=== PATIENT | male | born 1975 | race Caucasian/White ===

== ENCOUNTER 2023-09-13 21:19 | Inpatient (IN) | payer BC, OTHER ==
[~2023-09-13 21:19] MED LIST: Iopamidol-370 76% 500 ML MDV (1 ML CHARGE) ONE
[2023-09-13] MEDS ORDERED: Morphine 4 MG/ML VIAL ONE ×2 (21:36→23:37)
[2023-09-13 21:52] LABS: #Basophils 0.07 10x3/uL (0.0-0.2); %Basophils 0.9 % (0.0-1.0); %Eosinophils 1.8 % (0.0-10.0); %Lymphocytes 30.4 % (21.0-51.0); %Monocytes 6.2 % (0.0-10.0); %Neutrophils 58.9 % (42.0-75.0); Mean Corpuscular HGB CONC 35.6 g/dL (32.0-36.0); Mean Corpuscular Hemoglobin 30.1 pg (27.0-31.0); Mean Corpuscular Volume 84.7 fL (78.0-98.0); Mean Platelet Volume 8.8 fL (7.4-10.4); Platelet Count 307 10x3/uL (130-400); RBC Distribution Width 12.5 % (11.5-14.5); Red Blood Cell (RBC) Count 5.31 mill/uL (4.70-6.10)
[2023-09-13 22:03] LABS: Alcohol Less than 10.0 mg/dL (Less than 10)
[2023-09-13 22:06] LABS: ALT (SGPT) 25 U/L (8-55); AST (SGOT) 22 U/L (5-34); Albumin 3.9 g/dL (3.5-5.0); Alkaline Phosphatase 49 U/L (40-110); Anion Gap 16 mmol/L (10-20); BUN (Urea Nitrogen) 21 mg/dL (8.9-20.6); Bilirubin, Total 0.3 mg/dL (0.2-1.2); Calc. Creatinine Clearance 0 mL/min (70-130); Calcium 8.4 mg/dL (7.8-10.44); Carbon Dioxide 21 mmol/L (22-29); Chloride 104 mmol/L (98-107); Estimated GFR 75; Glucose 119 mg/dL (70-105); Potassium 3.6 mmol/L (3.5-5.1); Protein, Total 6.9 g/dL (6.0-8.3); Sodium 137 mmol/L (136-145)
[2023-09-13 22:10] LABS: PTT 25.2 sec (22.9-36.1)
[2023-09-13] MEDS ORDERED: Ipratropium/Albuterol 3 ML NEB NEB PRN (23:44)
[2023-09-13] MEDS ORDERED: Ondansetron PF 4 MG/2 ML Vial IVP PRN (23:44)
[2023-09-13] MEDS ORDERED: traMADol HCl 50 MG TAB PO PRN (23:46)
[2023-09-13] MEDS ORDERED: Acetaminophen 325 MG TAB PO SCH (23:59)
[2023-09-14 01:25] VITALS: BMI 31.4
[2023-09-14] MEDS: Sodium Chloride 0.9% 1,000 ML IV SCH (01:37)
[2023-09-14] MEDS: Morphine 2 MG/ML VIAL SLOW IVP PRN (01:38)
[2023-09-14] MEDS: traMADol HCl 50 MG TAB PO SCH (01:47)
[2023-09-14] MEDS: Ketorolac Tromethamine 30 MG (1 mL) VIAL IVP SCH ×2 (01:47→05:22)
[2023-09-14] MEDS: Acetaminophen 500 MG TAB PO SCH (01:47)
[2023-09-14] MEDS: Cyclobenzaprine 10 MG TAB PO PRN (03:40)
[2023-09-14 05:54] LABS: #Basophils 0.06 10x3/uL (0.0-0.2); %Basophils 0.6 % (0.0-1.0); %Eosinophils 1.2 % (0.0-10.0); %Lymphocytes 24.3 % (21.0-51.0); %Monocytes 8.8 % (0.0-10.0); %Neutrophils 64.4 % (42.0-75.0); Hematocrit 42.1 % (42.0-52.0); Hemoglobin 14.4 g/dL (14.0-18.0); Mean Corpuscular HGB CONC 34.2 g/dL (32.0-36.0); Mean Corpuscular Hemoglobin 29.6 pg (27.0-31.0); Mean Corpuscular Volume 86.4 fL (78.0-98.0); Mean Platelet Volume 9.1 fL (7.4-10.4); Platelet Count 249 10x3/uL (130-400); RBC Distribution Width 12.6 % (11.5-14.5); Red Blood Cell (RBC) Count 4.87 mill/uL (4.70-6.10)
[2023-09-14 06:22] LABS: Anion Gap 10 mmol/L (10-20); BUN (Urea Nitrogen) 18 mg/dL (8.9-20.6); Calc. Creatinine Clearance 117 mL/min (70-130); Calcium 8.1 mg/dL (7.8-10.44); Carbon Dioxide 27 mmol/L (22-29); Chloride 102 mmol/L (98-107); Estimated GFR 88; Glucose 95 mg/dL (70-105); Potassium 3.2 mmol/L (3.5-5.1); Sodium 136 mmol/L (136-145)
[2023-09-14] MEDS: Polyethylene Glycol 3350 17 GM Packet PO SCH (09:37)
[2023-09-14] MEDS: Senokot S 8.6-50 MG TAB PO SCH (09:38)
[2023-09-14] MEDS: Famotidine/PF 20 mg/2ml Vial SLOW IVP SCH (09:38)
[2023-09-14] MEDS: Tamsulosin HCl 0.4 MG CAP PO SCH (18:13)
[2023-09-15] MEDS: Tamsulosin HCl 0.4 MG CAP PO SCH (09:30)
[2023-09-15] MEDS: Escitalopram Oxalate 20 mg Tablet PO SCH (17:07)
[2023-09-15] MEDS: buPROPion 75 MG TAB PO SCH ×2 (17:07)
[2023-09-15] MEDS ORDERED: buPROPion 75 MG TAB PO SCH ×2 (21:00)
[2023-09-16] MEDS: Ibuprofen 600 MG TAB PO SCH (09:19)
[2023-09-16] MEDS: Famotidine 20 MG TAB PO SCH (09:21)
[2023-09-16] MEDS: Escitalopram Oxalate 20 mg Tablet PO SCH (09:21)
[2023-09-16] MEDS: Hydrochlorothiazide 25 MG TAB PO SCH (09:21)
[2023-09-16] MEDS ORDERED: TETANUS, DIPHTHERIA TOX,ADULT (TDVAX) 0.5 ML VIAL IM ONE (09:22)
[2023-09-16] MEDS: Losartan 25 MG TAB PO SCH (09:22)
[2023-09-16 12:29] VITALS: TEMP 98.1
[2023-09-16] MEDS: hydrALAZINE 20 MG/ML VIAL SLOW IVP PRN (12:34)
[2023-09-16 15:22] VITALS: BP 138/39
== END 2023-09-16 15:22 | disposition home or self-care (01) | DRG 552 ==
LOC: ERS 21:19 → SJJU 23:26 → OBSVTOIN 09-16 09:22
PROVIDERS: ADMIT Student in an Organized Health Care Education/Training Program; ATTEND Student in an Organized Health Care Education/Training Program
DX: S22.010A Wedge compression fracture of first thoracic vertebra, initial encounter for closed fracture (principal); S32.030A Wedge compression fracture of third lumbar vertebra, initial encounter for closed fracture; V49.9XXA Car occupant (driver) (passenger) injured in unspecified traffic accident, initial encounter; I10 Essential (primary) hypertension; Z79.899 Other long term (current) drug therapy; S22.020A Wedge compression fracture of second thoracic vertebra, initial encounter for closed fracture
CPT/HCPCS: 36415; 70450; 71045; 71260; 72125; 72170; 74177; 80048; 80053; 80307; 85025; 85610; 85730; 93005; 96374; 96376; G0390; J0360; J1885; J2270; J2272; J7050; Q9967; S0028